=== PATIENT | male | born 1980 | race Caucasian/White ===

== ENCOUNTER 2018-08-20 12:15 | Emergency (ER) | payer SELFPAY ==
[~2018-08-20] VITALS: Ht 172.7 cm; Wt 76.4 kg
[2018-08-20 12:25] VITALS: BP 165/116
[2018-08-20] MEDS: AMOX TR/POT CLAV 875 MG/125 MG TABLET PO ONE ×2 (13:12→13:32)
[2018-08-20] MEDS ORDERED: PEN G PROCAINE/PEN G BENZ CR 1,200,000 UNITS/2 ML SYG IM ONE (13:30)
== END 2018-08-20 13:30 | disposition home or self-care (01) ==
LOC: EMS 12:17
DX: J02.0 Streptococcal pharyngitis (principal)
CPT/HCPCS: J0558

== ENCOUNTER 2019-01-10 01:43 | Inpatient (IN) | payer MEDICAID ==
[~2019-01-10] VITALS: Ht 167.6 cm; Wt 63.0 kg
[2019-01-10] MEDS ORDERED: DiphenhydrAMINE HCL 50 MG/ML VIAL ONE (02:03)
[2019-01-10] MEDS ORDERED: LORazepam 2 MG/ML VIAL ONE (02:03)
[2019-01-10] MEDS ORDERED: HALOPERIDOL LACTATE 5 MG/ML VIAL ONE (02:03)
[2019-01-10] MEDS ORDERED: HALOPERIDOL LACTATE 5 MG/ML VIAL IM ONE (02:15)
[2019-01-10] MEDS ORDERED: LORazepam 2 MG/ML VIAL IM ONE (02:15)
[2019-01-10] MEDS ORDERED: DiphenhydrAMINE HCL 50 MG/ML VIAL IM ONE (02:15)
[2019-01-10 03:03] LABS: BASOPHILS % (AUTO) 0.3 % (0.0-2.0); HEMATOCRIT 38.7 % (41-53); HEMOGLOBIN 13.1 g/dL (13.5-17.5); LYMPHOCYTES # (AUTO) 1.9 K/uL (1.0-4.8); LYMPHOCYTES % (AUTO) 31.6 % (22.0-44.0); MEAN CORPUSCULAR HEMOGLOBIN 29.2 pg (26.0-34.0); MEAN CORPUSCULAR HGB CONC 33.9 G/dL (31.0-37.0); MEAN CORPUSCULAR VOLUME 86 fL (80-100); MONOCYTES # (AUTO) 0.6 K/uL (0.1-1.0); MONOCYTES % (AUTO) 9.4 % (2.0-9.0); NEUTROPHILS # (AUTO) 3.4 K/uL (1.8-7.7); NEUTROPHILS % (AUTO) 56.7 % (40.0-70.0); PLATELET COUNT (AUTO) 291 K/uL (150-450); RED BLOOD CELL COUNT(AUTO) 4.49 MIL/uL (4.50-5.90); RED CELL DISTRIBUTION WIDTH 14.5 % (11.5-14.5)
[2019-01-10 03:11] LABS: AMPHET/METH SCREEN,URINE POSITIVE (NEGATIVE); BARBITURATE SCREEN, URINE NEGATIVE (NEGATIVE); BENZODIAZEPINES SCREEN,URINE NEGATIVE (NEGATIVE); CANNABINOID SCREEN,URINE POSITIVE (NEGATIVE); COCAINE SCREEN,URINE POSITIVE (NEGATIVE); METHADONE SCREEN, URINE NEGATIVE (NEGATIVE); OPIATE SCREEN,URINE NEGATIVE (NEGATIVE)
[2019-01-10 03:12] LABS: PHENCYCLIDINE SCREEN,URINE NEGATIVE (NEGATIVE)
[2019-01-10 03:13] LABS: ANION GAP 17 mmol/L (8-16); CALCIUM, TOTAL 8.4 mg/dL (8.8-10.5); CARBON DIOXIDE 20 mmol/L (22-29); CHLORIDE 109 mmol/L (98-107); CREATININE 1.15 mg/dL (0.60-1.30); GLOMERULAR FILTR. RATE CALC > 60 mL/min (>60); GLUCOSE,RANDOM 139 mg/dL (70-110); POTASSIUM 3.3 mmol/L (3.5-5.1); SODIUM SERUM 146 mmol/L (136-145); UREA NITROGEN, BLOOD 35 mg/dL (7-18)
[2019-01-10 03:18] LABS: ALANINE AMINOTRANSFERASE 18 U/L (12-78); ALBUMIN 3.1 g/dL (3.4-5.0); ALKALINE PHOSPHATASE 79 U/L (46-116); ASPARTATE AMINOTRANSFERASE 18 U/L (15-37); BILIRUBIN,TOTAL 0.2 mg/dL (0.1-1.0); TOTAL PROTEIN, SERUM 6.3 g/dL (6.4-8.2)
[2019-01-10] MEDS ORDERED: ZOLPIDEM TARTRATE 10 MG TABLET PO PRN (05:30)
[2019-01-10] MEDS ORDERED: POTASSIUM CHLORIDE 20 MEQ ER TABLET PO ONE (05:30)
[2019-01-10 09:30] VITALS: BP 126/76
[2019-01-10] MEDS ORDERED: INFLUENZA VIRUS VACCINE QVS 2019-20 (3YR+)/PF 60 MCG/0.5 ML SYRINGE IM ONE (12:30)
[2019-01-10] MEDS ORDERED: CloNIDine HCL 0.1 MG TABLET PO PRN (13:45)
[2019-01-10] MEDS ORDERED: NICOTINE 14 MG/24 HOUR PATCH TD PRN (13:45)
[2019-01-10] MEDS ORDERED: IBUPROFEN 400 MG TABLET PO PRN (13:45)
[2019-01-10] MEDS ORDERED: GuaiFENesin/D-METHORPHAN [SUGAR-FREE] 200-20MG/10 ML SYRUP UDCUP PO PRN (13:45)
[2019-01-10] MEDS ORDERED: PETROLATUM,WHITE 28 GM JELLY TP PRN (13:45)
[2019-01-10] MEDS ORDERED: ACETAMINOPHEN 325 MG TABLET PO PRN (13:45)
[2019-01-10] MEDS ORDERED: MAGNESIUM HYDROXIDE SUSPENSION 30 ML UDCUP PO PRN (13:45)
[2019-01-10] MEDS ORDERED: DOCUSATE SODIUM 100 MG CAPSULE PO PRN (13:45)
[2019-01-10] MEDS ORDERED: ALBUTEROL SULFATE HFA 90 MCG/PUFF 8 GM INHALER IH PRN (13:45)
[2019-01-10] MEDS ORDERED: MAG HYDROX/AL HYDROX/SIMETH ES 30 ML SUSPENSION UDCUP PO PRN (13:45)
[2019-01-10] MEDS ORDERED: LOPERAMIDE HCL 2 MG CAPSULE PO PRN (13:45)
[2019-01-10] MEDS ORDERED: ONDANSETRON HCL 4 MG TABLET PO PRN (13:45)
[2019-01-11 08:06] VITALS: BP 168/105
[2019-01-11 08:30] VITALS: BP 117/80
[2019-01-11 08:53] LABS: CHOL/HDL RATIO 2.8 (4.2-7.3); POTASSIUM 3.8 mmol/L (3.5-5.1)
[2019-01-11 16:02] VITALS: BP 122/64
[2019-01-12] MEDS: LORazepam 2 MG TABLET PO PRN ×2 (07:59→15:33)
[2019-01-12 08:28] VITALS: BP 139/83
[2019-01-12] MEDS: HALOPERIDOL 5 MG TABLET PO PRN ×2 (08:59→15:33)
[2019-01-12] MEDS ORDERED: LORazepam 2 MG/ML VIAL IM ONE (09:45)
[2019-01-12] MEDS ORDERED: DiphenhydrAMINE HCL 50 MG/ML VIAL IM ONE (09:45)
[2019-01-12] MEDS ORDERED: HALOPERIDOL LACTATE 5 MG/ML VIAL IM ONE (09:45)
[2019-01-12 16:06] VITALS: BP 120/97
[2019-01-12] MEDS: OLANZapine 10 MG TABLET PO SCH (16:47)
[2019-01-13 06:33] VITALS: BP 100/62
[2019-01-13 06:35] VITALS: BP 100/62
[2019-01-13 06:38] VITALS: BP 100/62
[2019-01-13 08:14] VITALS: BP 136/87
[2019-01-13] MEDS: OLANZapine 10 MG TABLET PO SCH ×2 (08:31→17:12)
[2019-01-13] MEDS: LORazepam 2 MG TABLET PO PRN (15:09)
[2019-01-13] MEDS: HALOPERIDOL 5 MG TABLET PO PRN (15:09)
[2019-01-13 16:02] VITALS: BP 131/80
[2019-01-14 06:12] VITALS: BP 129/82
[2019-01-14 08:00] VITALS: BP 112/62
[2019-01-14] MEDS: OLANZapine 10 MG TABLET PO SCH (08:36)
[2019-01-14] MEDS: HALOPERIDOL 5 MG TABLET PO PRN (08:36)
[2019-01-14] MEDS: LORazepam 2 MG TABLET PO PRN (08:36)
[2019-01-14] MEDS ORDERED: OLAN10TA3 PO (10:47)
== END 2019-01-14 15:00 | disposition home or self-care (01) | DRG 750 ==
LOC: EMS 01:44 → B3A 09:00
PROVIDERS: ADMIT Psychiatry & Neurology Psychiatry; ATTEND Psychiatry & Neurology Psychiatry
DX: F25.9 Schizoaffective disorder, unspecified (principal); E87.0 Hyperosmolality and hypernatremia; D64.9 Anemia, unspecified; F14.159 Cocaine abuse with cocaine-induced psychotic disorder, unspecified; F15.159 Other stimulant abuse with stimulant-induced psychotic disorder, unspecified; E87.6 Hypokalemia; F10.10 Alcohol abuse, uncomplicated; F12.90 Cannabis use, unspecified, uncomplicated; Y90.2 Blood alcohol level of 40-59 mg/100 ml; F31.9 Bipolar disorder, unspecified; F94.0 Selective mutism; I10 Essential (primary) hypertension; Z59.0 Homelessness
CPT/HCPCS: 84132; 93005; G0480; J1200; J1630; J2060

== ENCOUNTER 2020-04-04 12:44 | Emergency (ER) | payer MEDICAID ==
[~2020-04-04] VITALS: Ht 180.3 cm; Wt 72.7 kg
[~2020-04-04 12:44] MED LIST: OLAN10TA3 PO
[2020-04-04] MEDS ORDERED: LORazepam 1 MG TABLET PO ONE (14:15)
[2020-04-04 15:40] VITALS: BP 134/86
== END 2020-04-04 16:21 | disposition home or self-care (01) ==
LOC: EMS 12:44
DX: F20.9 Schizophrenia, unspecified (principal); F31.9 Bipolar disorder, unspecified; I11.9 Hypertensive heart disease without heart failure; F17.210 Nicotine dependence, cigarettes, uncomplicated; F12.90 Cannabis use, unspecified, uncomplicated; F19.90 Other psychoactive substance use, unspecified, uncomplicated
CPT/HCPCS: 99285; Z7502; Z7610

== ENCOUNTER 2020-06-06 13:50 | Emergency (ER) | payer MEDICAID ==
[~2020-06-06] VITALS: Ht 177.8 cm; Wt 63.6 kg
[~2020-06-06 13:50] MED LIST changes: +AMLO-257 PO; +GABA-1181 PO; -OLAN10TA3 PO; +OLAN5TAB2 PO
[2020-06-06] MEDS ORDERED: ONDANSETRON HCL 4 MG TABLET PO ONE (16:00)
[2020-06-06 16:17] LABS: BASOPHILS % (AUTO) 0.2 % (0.0-2.0); EOSINOPHILS % (AUTO) 3.1 % (1.0-6.0); HEMOGLOBIN 16.1 g/dL (13.5-17.5); LYMPHOCYTES # (AUTO) 2.3 K/uL (1.0-4.8); MEAN CORPUSCULAR HEMOGLOBIN 28.9 pg (26.0-34.0); MEAN CORPUSCULAR HGB CONC 34.2 G/dL (31.0-37.0); MEAN CORPUSCULAR VOLUME 85 fL (80-100); MONOCYTES # (AUTO) 1.2 K/uL (0.1-1.0); MONOCYTES % (AUTO) 10.3 % (2.0-9.0); NEUTROPHILS # (AUTO) 7.6 K/uL (1.8-7.7); NEUTROPHILS % (AUTO) 66.4 % (40.0-70.0); PLATELET COUNT (AUTO) 392 K/uL (150-450); RED BLOOD CELL COUNT(AUTO) 5.56 MIL/uL (4.50-5.90); RED CELL DISTRIBUTION WIDTH 14.4 % (11.5-14.5)
[2020-06-06 16:29] LABS: ANION GAP 16 mmol/L (8-16); CARBON DIOXIDE 16 mmol/L (22-29); CHLORIDE 105 mmol/L (98-107); CREATININE 1.09 mg/dL (0.60-1.30); GLOMERULAR FILTR. RATE CALC > 60 mL/min (>60); GLUCOSE,RANDOM 95 mg/dL (70-110); POTASSIUM 3.2 mmol/L (3.5-5.1); SODIUM SERUM 137 mmol/L (136-145); UREA NITROGEN, BLOOD 22 mg/dL (7-18)
[2020-06-06 16:34] LABS: ALANINE AMINOTRANSFERASE 24 U/L (12-78); ALBUMIN 3.9 g/dL (3.4-5.0); ALKALINE PHOSPHATASE 67 U/L (46-116); ASPARTATE AMINOTRANSFERASE 10 U/L (15-37); BILIRUBIN,TOTAL 0.4 mg/dL (0.1-1.0); TOTAL PROTEIN, SERUM 7.4 g/dL (6.4-8.2)
[2020-06-06] MEDS ORDERED: POTASSIUM CHLORIDE 20 MEQ ER TABLET PO ONE (17:15)
[2020-06-06 18:43] LABS: COVID AG,FIA SOURCE NASOPHARYNGEAL
[2020-06-06] MEDS ORDERED: OLANZapine 5 MG TABLET PO ONE (18:45)
[2020-06-06 20:30] VITALS: BP 136/88
== END 2020-06-06 20:46 | disposition home or self-care (01) ==
LOC: EMS 14:11
DX: R45.851 Suicidal ideations (principal); I10 Essential (primary) hypertension; I51.9 Heart disease, unspecified; F20.9 Schizophrenia, unspecified; F17.210 Nicotine dependence, cigarettes, uncomplicated; F12.90 Cannabis use, unspecified, uncomplicated; F15.90 Other stimulant use, unspecified, uncomplicated; Z79.899 Other long term (current) drug therapy; Z20.822 Contact with and (suspected) exposure to COVID-19
CPT/HCPCS: 36415; 80053; 85025; 87426; 99284; G0480; Q0162

== ENCOUNTER 2020-06-07 18:37 | Inpatient (IN) | payer MEDICAID ==
[~2020-06-07] VITALS: Ht 170.2 cm; Wt 67.1 kg
[2020-06-07 19:32] LABS: BASOPHILS % (AUTO) 0.3 % (0.0-2.0); EOSINOPHILS % (AUTO) 5.1 % (1.0-6.0); HEMATOCRIT 42.5 % (41-53); HEMOGLOBIN 14.5 g/dL (13.5-17.5); LYMPHOCYTES # (AUTO) 3.6 K/uL (1.0-4.8); LYMPHOCYTES % (AUTO) 38.1 % (22.0-44.0); MEAN CORPUSCULAR HGB CONC 34.1 G/dL (31.0-37.0); MEAN CORPUSCULAR VOLUME 85 fL (80-100); MONOCYTES % (AUTO) 10.3 % (2.0-9.0); NEUTROPHILS # (AUTO) 4.4 K/uL (1.8-7.7); NEUTROPHILS % (AUTO) 46.2 % (40.0-70.0); PLATELET COUNT (AUTO) 351 K/uL (150-450); RED BLOOD CELL COUNT(AUTO) 4.98 MIL/uL (4.50-5.90); RED CELL DISTRIBUTION WIDTH 14.8 % (11.5-14.5)
[2020-06-07 19:44] LABS: ANION GAP 10 mmol/L (8-16); CARBON DIOXIDE 26 mmol/L (22-29); CHLORIDE 107 mmol/L (98-107); CREATININE 1.24 mg/dL (0.60-1.30); GLOMERULAR FILTR. RATE CALC > 60 mL/min (>60); GLUCOSE,RANDOM 71 mg/dL (70-110); POTASSIUM 3.9 mmol/L (3.5-5.1); SODIUM SERUM 143 mmol/L (136-145); UREA NITROGEN, BLOOD 26 mg/dL (7-18)
[2020-06-07 19:59] LABS: ALANINE AMINOTRANSFERASE 17 U/L (12-78); ALBUMIN 3.2 g/dL (3.4-5.0); ALKALINE PHOSPHATASE 80 U/L (46-116); ASPARTATE AMINOTRANSFERASE 9 U/L (15-37); BILIRUBIN,TOTAL 0.2 mg/dL (0.1-1.0); LIPASE 265 U/L (73-393); TOTAL PROTEIN, SERUM 6.4 g/dL (6.4-8.2)
[2020-06-07] MEDS ORDERED: SODIUM CHLORIDE 0.9% 1,000 ML IV ONE (20:00)
[2020-06-07] MEDS ORDERED: ONDANSETRON HCL 4 MG/2 ML VIAL IVP ONE (20:00)
[2020-06-07] MEDS ORDERED: KETOROLAC TROMETHAMINE 30 MG/ML VIAL IVP ONE (20:15)
[2020-06-07] MEDS ORDERED: LORazepam 1 MG TABLET PO ONE (22:30)
[2020-06-07] MEDS ORDERED: OLANZapine 5 MG TABLET PO PRN (23:15)
[2020-06-08 00:47] LABS: COVID AG,FIA SOURCE NASOPHARYNGEAL
[2020-06-08 02:56] LABS: CHOL/HDL RATIO 2.4 (4.2-7.3); CHOLESTEROL 95 mg/dL (131-200); HDL CHOLESTEROL 39 mg/dL (40-60); LDL CHOL (CALC.) 40 mg/dL (0-130); TRIGLYCERIDES 81 mg/dL (15-150)
[2020-06-08 07:30] VITALS: BP 120/68
[2020-06-08] MEDS ORDERED: ALBUTEROL SULFATE HFA 90 MCG/PUFF 8 GM INHALER IH PRN (08:15)
[2020-06-08] MEDS ORDERED: MAG HYDROX/AL HYDROX/SIMETH ES 30 ML SUSPENSION UDCUP PO PRN (08:15)
[2020-06-08] MEDS ORDERED: ONDANSETRON HCL 4 MG TABLET PO PRN (08:15)
[2020-06-08] MEDS ORDERED: CloNIDine HCL 0.1 MG TABLET PO PRN (08:15)
[2020-06-08] MEDS ORDERED: PETROLATUM,WHITE 28 GM JELLY TP PRN (08:15)
[2020-06-08] MEDS ORDERED: MAGNESIUM HYDROXIDE SUSPENSION 30 ML UDCUP PO PRN (08:15)
[2020-06-08] MEDS ORDERED: LOPERAMIDE HCL 2 MG CAPSULE PO PRN (08:15)
[2020-06-08] MEDS ORDERED: DOCUSATE SODIUM 100 MG CAPSULE PO PRN (08:15)
[2020-06-08] MEDS ORDERED: GuaiFENesin/D-METHORPHAN [SUGAR-FREE] 200-20MG/10 ML SYRUP UDCUP PO PRN (08:15)
[2020-06-08] MEDS: GABAPENTIN 300 MG CAPSULE PO SCH ×2 (08:47→17:23)
[2020-06-08] MEDS: AmLODIPine BESYLATE 5 MG TABLET PO SCH (08:47)
[2020-06-08 15:27] LABS: APPEARANCE,URINE CLEAR (CLEAR); BILIRUBIN,URINE NEGATIVE (NEGATIVE); GLUCOSE, URINE (UA) NEGATIVE (NEGATIVE); KETONES,URINE NEGATIVE (NEGATIVE); LEUKOCYTE ESTERASE ,URINE NEGATIVE (NEGATIVE); NITRATE,URINE NEGATIVE (NEGATIVE); OCCULT BLOOD,URINE NEGATIVE (NEGATIVE); PROTEIN,URINE NEGATIVE (NEGATIVE); UROBILINOGEN,URINE 0.2 mg/dL (<=1.0)
[2020-06-08 15:30] LABS: AMPHET/METH SCREEN,URINE NEGATIVE (NEGATIVE); BARBITURATE SCREEN, URINE NEGATIVE (NEGATIVE); BENZODIAZEPINES SCREEN,URINE NEGATIVE (NEGATIVE); CANNABINOID SCREEN,URINE NEGATIVE (NEGATIVE); COCAINE SCREEN,URINE NEGATIVE (NEGATIVE); METHADONE SCREEN, URINE NEGATIVE (NEGATIVE); OPIATE SCREEN,URINE NEGATIVE (NEGATIVE)
[2020-06-08 15:32] LABS: PHENCYCLIDINE SCREEN,URINE NEGATIVE (NEGATIVE)
[2020-06-08] MEDS: OLANZapine 10 MG TABLET PO SCH (17:23)
[2020-06-09 08:00] VITALS: BP 140/93
[2020-06-09] MEDS: GABAPENTIN 300 MG CAPSULE PO SCH ×2 (08:00→16:36)
[2020-06-09] MEDS: OLANZapine 10 MG TABLET PO SCH ×2 (08:00→16:36)
[2020-06-09] MEDS: AmLODIPine BESYLATE 5 MG TABLET PO SCH (08:01)
[2020-06-09] MEDS: IBUPROFEN 400 MG TABLET PO PRN ×2 (08:01→16:04)
[2020-06-09 09:01] VITALS: BP 137/87
[2020-06-09 16:00] VITALS: BP 138/86
[2020-06-09] MEDS: LORazepam 2 MG TABLET PO PRN (16:04)
[2020-06-10] VITALS (7 sets, daily range): BP systolic 128–136; BP diastolic 68–93
[2020-06-10] MEDS: IBUPROFEN 400 MG TABLET PO PRN ×2 (03:21→15:01)
[2020-06-10] MEDS: LORazepam 2 MG TABLET PO PRN ×4 (03:22→22:17)
[2020-06-10] MEDS: ACETAMINOPHEN 325 MG TABLET PO PRN ×2 (08:21→20:22)
[2020-06-10] MEDS: GABAPENTIN 300 MG CAPSULE PO SCH ×2 (08:21→16:27)
[2020-06-10] MEDS: OLANZapine 10 MG TABLET PO SCH ×2 (08:21→16:27)
[2020-06-10] MEDS: AmLODIPine BESYLATE 5 MG TABLET PO SCH (08:21)
[2020-06-10] MEDS: OLANZapine 5 MG TABLET PO PRN (18:49)
[2020-06-10] MEDS: ZOLPIDEM TARTRATE 10 MG TABLET PO PRN (20:21)
[2020-06-11 00:01] VITALS: BP 154/103
[2020-06-11 08:00] VITALS: BP 157/102
[2020-06-11] MEDS: OLANZapine 10 MG TABLET PO SCH ×2 (08:04→17:30)
[2020-06-11] MEDS: AmLODIPine BESYLATE 5 MG TABLET PO SCH (08:04)
[2020-06-11] MEDS: LORazepam 2 MG TABLET PO PRN ×2 (08:05→14:37)
[2020-06-11] MEDS: IBUPROFEN 400 MG TABLET PO PRN ×2 (08:05→17:45)
[2020-06-11] MEDS: GABAPENTIN 300 MG CAPSULE PO SCH ×2 (08:05→17:30)
[2020-06-11 09:05] VITALS: BP 126/91
[2020-06-11 14:35] VITALS: BP 144/98
[2020-06-11] MEDS: ACETAMINOPHEN 325 MG TABLET PO PRN (14:37)
[2020-06-11 16:00] VITALS: BP 143/95
[2020-06-11 17:46] VITALS: BP 158/117
[2020-06-12 06:54] VITALS: BP 146/103
[2020-06-12] MEDS: LORazepam 2 MG TABLET PO PRN ×3 (06:54→17:56)
[2020-06-12] MEDS: IBUPROFEN 400 MG TABLET PO PRN ×2 (06:55→17:56)
[2020-06-12] MEDS: AmLODIPine BESYLATE 5 MG TABLET PO SCH (08:36)
[2020-06-12] MEDS: GABAPENTIN 300 MG CAPSULE PO SCH ×2 (08:36→16:34)
[2020-06-12] MEDS: OLANZapine 10 MG TABLET PO SCH ×2 (08:36→16:34)
[2020-06-12 08:39] VITALS: BP 146/95
[2020-06-12 11:11] VITALS: BP 136/93
[2020-06-12] MEDS: ACETAMINOPHEN 325 MG TABLET PO PRN (11:11)
[2020-06-12 12:11] VITALS: BP 126/98
[2020-06-12 16:00] VITALS: BP 132/94
[2020-06-12] MEDS: ZOLPIDEM TARTRATE 10 MG TABLET PO PRN (21:57)
[2020-06-13] MEDS: LORazepam 2 MG TABLET PO PRN ×3 (07:58→16:40)
[2020-06-13] MEDS: AmLODIPine BESYLATE 5 MG TABLET PO SCH (07:58)
[2020-06-13] MEDS: OLANZapine 10 MG TABLET PO SCH ×2 (07:58→16:39)
[2020-06-13] MEDS: IBUPROFEN 400 MG TABLET PO PRN ×2 (07:58→16:40)
[2020-06-13] MEDS: GABAPENTIN 300 MG CAPSULE PO SCH ×2 (07:58→16:39)
[2020-06-13 08:14] VITALS: BP 151/106
[2020-06-13] MEDS: ACETAMINOPHEN 325 MG TABLET PO PRN (12:14)
[2020-06-13 15:11] LABS: COVID AG,FIA SOURCE NASOPHARYNGEAL
[2020-06-13 16:22] VITALS: BP 131/79
[2020-06-13 16:40] VITALS: BP 123/79
[2020-06-13] MEDS: ZOLPIDEM TARTRATE 10 MG TABLET PO PRN (20:02)
[2020-06-14 02:57] VITALS: BP 141/104
[2020-06-14] MEDS: LORazepam 2 MG TABLET PO PRN ×4 (02:58→17:47)
[2020-06-14 08:00] VITALS: BP 144/96
[2020-06-14 08:20] VITALS: BP 144/96
[2020-06-14] MEDS: GABAPENTIN 300 MG CAPSULE PO SCH ×2 (08:23→16:53)
[2020-06-14] MEDS: IBUPROFEN 400 MG TABLET PO PRN ×2 (08:23→17:47)
[2020-06-14] MEDS: OLANZapine 10 MG TABLET PO SCH ×2 (08:23→16:53)
[2020-06-14] MEDS: AmLODIPine BESYLATE 5 MG TABLET PO SCH (08:24)
[2020-06-14] MEDS: OLANZapine 5 MG TABLET PO PRN (12:31)
[2020-06-14] MEDS: ACETAMINOPHEN 325 MG TABLET PO PRN (12:31)
[2020-06-14] MEDS: NICOTINE 14 MG/24 HOUR PATCH TD PRN (16:53)
[2020-06-15 03:34] VITALS: BP 149/105
[2020-06-15] MEDS: LORazepam 2 MG TABLET PO PRN ×3 (03:36→19:01)
[2020-06-15] MEDS: IBUPROFEN 400 MG TABLET PO PRN ×2 (03:36→19:01)
[2020-06-15] MEDS: GABAPENTIN 300 MG CAPSULE PO SCH ×2 (09:34→16:54)
[2020-06-15] MEDS: AmLODIPine BESYLATE 5 MG TABLET PO SCH (09:34)
[2020-06-15] MEDS: OLANZapine 10 MG TABLET PO SCH ×2 (09:34→16:54)
[2020-06-15] MEDS: ACETAMINOPHEN 325 MG TABLET PO PRN (09:36)
[2020-06-15] MEDS: OLANZapine 5 MG TABLET PO PRN (10:42)
[2020-06-15 12:26] VITALS: BP 139/85
[2020-06-15] MEDS ORDERED: DiphenhydrAMINE HCL 50 MG/ML VIAL IM ONE (13:30)
[2020-06-15] MEDS ORDERED: HALOPERIDOL LACTATE 5 MG/ML VIAL IM ONE (13:30)
[2020-06-15] MEDS ORDERED: LORazepam 2 MG/ML VIAL IM ONE (13:30)
[2020-06-15 17:34] VITALS: BP 142/90
[2020-06-15 19:00] VITALS: BP 124/85
[2020-06-15] MEDS: NICOTINE 14 MG/24 HOUR PATCH TD PRN (19:01)
[2020-06-16] MEDS: ZOLPIDEM TARTRATE 10 MG TABLET PO PRN ×2 (01:35→20:41)
[2020-06-16] MEDS: OLANZapine 10 MG TABLET PO SCH ×2 (07:45→16:49)
[2020-06-16] MEDS: AmLODIPine BESYLATE 5 MG TABLET PO SCH (07:45)
[2020-06-16] MEDS: GABAPENTIN 300 MG CAPSULE PO SCH ×2 (07:46→16:49)
[2020-06-16] MEDS: IBUPROFEN 400 MG TABLET PO PRN ×2 (07:46→17:35)
[2020-06-16] MEDS: LORazepam 2 MG TABLET PO PRN ×3 (07:47→17:22)
[2020-06-16 08:00] VITALS: BP 159/112
[2020-06-16 12:49] VITALS: BP 118/98
[2020-06-16] MEDS: ACETAMINOPHEN 325 MG TABLET PO PRN (12:49)
[2020-06-16 16:00] VITALS: BP 143/82
[2020-06-16] MEDS: OLANZapine 5 MG TABLET PO PRN (17:22)
[2020-06-16 17:31] VITALS: BP 140/88
[2020-06-17 02:47] VITALS: BP 134/102
[2020-06-17] MEDS: LORazepam 2 MG TABLET PO PRN ×3 (02:55→17:39)
[2020-06-17] MEDS: IBUPROFEN 400 MG TABLET PO PRN ×3 (02:55→17:39)
[2020-06-17 08:00] VITALS: BP 131/99
[2020-06-17] MEDS: AmLODIPine BESYLATE 5 MG TABLET PO SCH (08:03)
[2020-06-17] MEDS: GABAPENTIN 300 MG CAPSULE PO SCH ×3 (08:04→16:06)
[2020-06-17] MEDS: OLANZapine 10 MG TABLET PO SCH ×2 (08:04→16:06)
[2020-06-17 16:00] VITALS: BP 123/72
[2020-06-17 17:40] VITALS: BP 133/89
[2020-06-17] MEDS: ZOLPIDEM TARTRATE 10 MG TABLET PO PRN (20:22)
[2020-06-18 03:45] VITALS: BP 143/108
[2020-06-18] MEDS: OLANZapine 5 MG TABLET PO PRN ×2 (03:49→12:13)
[2020-06-18] MEDS: IBUPROFEN 400 MG TABLET PO PRN ×2 (03:49→12:14)
[2020-06-18] MEDS: LORazepam 2 MG TABLET PO PRN ×2 (03:49→12:13)
[2020-06-18 08:09] VITALS: BP 124/101
[2020-06-18] MEDS: OLANZapine 10 MG TABLET PO SCH ×2 (10:14→16:21)
[2020-06-18] MEDS: GABAPENTIN 300 MG CAPSULE PO SCH ×3 (10:14→16:21)
[2020-06-18] MEDS: AmLODIPine BESYLATE 5 MG TABLET PO SCH (10:14)
[2020-06-18] MEDS ORDERED: OLAN10TA3 PO (15:47)
[2020-06-18] MEDS ORDERED: GABA-1181 PO (16:06)
[2020-06-18 16:08] VITALS: BP 119/79
== END 2020-06-18 18:42 | disposition home or self-care (01) | DRG 750 ==
LOC: EMS 18:37 → 3EI 23:08 → 3EC 06-15 13:30
PROVIDERS: ADMIT Psychiatry & Neurology Child & Adolescent Psychiatry; ATTEND Psychiatry & Neurology Child & Adolescent Psychiatry
DX: F25.1 Schizoaffective disorder, depressive type (principal); F31.30 Bipolar disorder, current episode depressed, mild or moderate severity, unspecified; R45.851 Suicidal ideations; F10.10 Alcohol abuse, uncomplicated; Z20.822 Contact with and (suspected) exposure to COVID-19; F17.210 Nicotine dependence, cigarettes, uncomplicated; F15.10 Other stimulant abuse, uncomplicated; F12.10 Cannabis abuse, uncomplicated; I10 Essential (primary) hypertension; Z59.0 Homelessness; Z91.19 Patient's noncompliance with other medical treatment and regimen; Z91.5 Personal history of self-harm; Z79.899 Other long term (current) drug therapy
CPT/HCPCS: 80053; 80061; 80307; 81003; 83690; 85025; 87426; 99285; J1200; J1630; J1885; J2060; J2405; J3535; J7030